=== PATIENT | male | born 1970 | race Caucasian/White ===

== ENCOUNTER 2017-07-04 10:53 | Emergency (ER) | payer MEDICARE, SELFPAY ==
[2017-07-04 10:54] VITALS: BP 164/104; PULSE 104; RESP 18; TEMP 36.2; BMI 38.2
[2017-07-04 11:17] VITALS: BP 139/99; PULSE 97; RESP 24; O2SAT 95
--- NOTE | 2017-07-04 11:18 | ED.VISSUMM ---
- ER Visit Summary Date of Service: 07/04/17 Chief Complaint: [] Right shoulder injury after fall History of Present Illness: The patient is a 46 M [] is an artificial knee the knee is stiff he was getting out of bed he inadvertently stumbled out of bed used his right arm to brace his fall he has right shoulder pain. He was able to get out of bed and go about his usual activities the shoulder pain persisted and he came in for evaluation. He had no head neck chest abdominal pain no paresthesias. He does not believe he actually struck his shoulder Physical Examination: [] He is a large gentleman in no distress is complaining shoulder pain only right. His HEENT exam head and neck are unremarkable no trauma lungs are distant heart tones are distant abdomen soft obese but nontender the back C-spine T-spine lumbar spine nontender his upper lower extremities are generally unremarkable except for the right shoulder there is no obvious instability deformity no obvious step-off to the shoulder humeral humeral glenoid area. He is able to move the shoulder but has slightly decreased forward elevation he has no elbow forearm wrist or hand pain hand function is normal Test Results: [] Emergency Department Course and Treatment: [] IM morphine and Zofran right shoulder x-ray X-rays unremarkable for any signs of fracture dislocation per radiology, explained the patient the concept of an occult injury including rotator cuff or other structures he is fitted with a sling ice elevation he has multiple allergies he has been instructed to take whatever [id number] medicine he is allowed to use and follow-up with his doctor he was given a referral to [facility] as well Treatment Plan: [] Disposition: [] Home stable Impression: [] Right shoulder injury after fall This note was generated with [employer] dictation software. It may contain incorrect words, spelling, and punctuation that were not noted in review of the chart prior to signing ED Disposition - Plan for ED Patient: Chief Complaint: Disclocation Referrals: [facility] Doctor,Out of [Primary Care Provider] -
[2017-07-04] MEDS: Ondansetron ODT 4 MG Tablet PO (11:24)
--- NOTE | 2017-07-04 11:35 | RAD_ITS ---
STUDY: X-RAY - RIGHT SHOULDER REASON FOR EXAM: Male, 46 years old. Fall from bed TECHNIQUE: 2 view(s) of the shoulder. COMPARISON: X-rays of the right shoulder and September 11, 2015. FINDINGS: Normal glenohumeral articulation. Normal acromioclavicular joint. Normal acromion. Normal humeral head and visualized proximal humerus. The soft tissue structures are unremarkable. Normal visualized pulmonary apex. RAD/Shoulder min 2 Views IMPRESSION: Normal x-ray examination of the shoulder. No significant changes since the prior study Electronically Signed: Kehinde Roldan MD, FACR at 11:56 EST , Service support ,
--- NOTE | 2017-07-04 11:55 | ED.DEP ---
ED Disposition - Plan for ED Patient: Chief Complaint: Disclocation Instructions: ED Sprain Shoulder Referrals: [facility] Doctor,Out of [Primary Care Provider] - Ramiro Clark MD [STAFF PHYSICIAN] -
--- NOTE | 2017-07-04 12:03 | DCINST.ED_ITS ---
ED Disposition - Plan for ED Patient: Chief Complaint: Disclocation Instructions: ED Sprain Shoulder Referrals: [facility] Doctor,Out of [Primary Care Provider] - Ramiro Clark MD [STAFF PHYSICIAN] -
[2017-07-04 12:28] VITALS: BP 156/96; PULSE 91; RESP 18; O2SAT 92
== END 2017-07-04 12:30 | disposition home or self-care (01) ==
LOC: ED 12:12
PROVIDERS: Emergency Provider Emergency Medicine
DX: S49.91XA Unspecified injury of right shoulder and upper arm, initial encounter (principal); W06.XXXA Fall from bed, initial encounter; Y93.89 Activity, other specified; Y92.009 Unspecified place in unspecified non-institutional (private) residence as the place of occurrence of the external cause; F32.9 Major depressive disorder, single episode, unspecified; Z79.899 Other long term (current) drug therapy
CPT/HCPCS: 73030; 96372; 99283

== ENCOUNTER 2019-06-10 12:00 | Emergency (ER) | payer MEDICARE, SELFPAY ==
[2019-06-10 12:02] VITALS: BP 139/92; PULSE 106; RESP 18; TEMP 37.1; O2SAT 97; BMI 37.5
--- NOTE | 2019-06-10 12:11 | RAD_ITS ---
STUDY: X-RAY - LEFT SHOULDER REASON FOR EXAM: Male, 48 years old. PT FELL LAST NIGHT, PAIN TECHNIQUE: 4 view(s) of the shoulder. COMPARISON: None. FINDINGS: Normal glenohumeral articulation. Normal acromioclavicular joint. There is evidence of a prior partial resection of the acromion. Normal humeral head and visualized proximal humerus. The soft tissue structures are unremarkable. Normal visualized pulmonary apex. RAD/Shoulder min 2 Views IMPRESSION: No acute abnormality is seen. Electronically Signed: Sherman Trujillo, at 12:49 EST , Service support ,
--- NOTE | 2019-06-10 12:55 | ED.DCSUM_ITS ---
- ER Visit Summary Date of Service: 06/10/19 Chief Complaint: [Injury to left shoulder] History of Present Illness: The patient is a 48 M [presents to the emergency department complaint of injury left shoulder that occurred last evening. Patient states that he slipped on his porch and put both hands out in front of him and injured his left shoulder. Patient complains of pain with movement. Patient complains of pain into his armpit with it. He denies any numbness or tingling or weakness in extremity. Patient is right-hand dominant. He denies tracking his head or loss of consciousness.] Physical Examination: [HEENT-PERRLA, EOMI. Cranial nerves II through XII grossly intact. TMs clear. Mucous membranes moist. No adenopathy. No external evidence of trauma to his head. Patient has no C-spine tenderness on palpation. Cardiovascular-regular rate and rhythm without murmur or ectopy Lungs-clear to auscultation, chest wall stable without crepitus or subcu emphysema Abdomen-normoactive bowel sounds, soft, nontender, no rebound or rigidity, no peritoneal signs. Extremities-intact ?4, normal range of motion, normal pulses, atraumatic]. Left shoulder-patient has diffuse tenderness about the glenohumeral joint. There is no sulcus sign or obvious deformity. There is no ecchymosis or bruising. Patient has decreased ability to abduct and internally rotate secondary to pain. He is neurovascular intact distally. Test Results: [Rays of the left shoulder showed no fractures or dislocations] Emergency Department Course and Treatment: [She was given a sling] Treatment Plan: [We will be given a prescription for Naprosyn and [place] for severe pain. Patient advised to follow-up with primary care physician or orthopedics on-call for follow-up within next 5 to 7 days.] Disposition: [Discharged home in stable condition.] Impression: [Left shoulder sprain-possible internal derangement] This note was generated with [facility] [employer] software. It may contain incorrect words, spelling, and punctuation that were not noted in review of the chart prior to signing ED Disposition - Plan for ED Patient: Referrals: ELIECER RÍOS [Other]
--- NOTE | 2019-06-10 12:57 | ED.DEP ---
ED Disposition - Plan for ED Patient: Instructions: Shoulder Sprain Prescriptions: Naproxen [Naprosyn] 500 mg PO BID PRN #20 tab Prescription Printed Hydrocodone Bitart/Apap 5-325 [[place] 5MG-325MG] 1 tab PO Q4H PRN PRN 2 Days #10 tab PRN Reason: Pain Prescription Printed Referrals: ELIECER RÍOS [Other] - 5-7 Days Nola Farias DO [STAFF PHYSICIAN] - 5-7 Days
[2019-06-10 13:13] VITALS: BP 140/92
== END 2019-06-10 13:14 | disposition home or self-care (01) ==
LOC: ED 12:46
PROVIDERS: Emergency Provider Emergency Medicine
DX: S43.402A Unspecified sprain of left shoulder joint, initial encounter (principal); W01.0XXA Fall on same level from slipping, tripping and stumbling without subsequent striking against object, initial encounter; Y93.9 Activity, unspecified; Y92.008 Other place in unspecified non-institutional (private) residence as the place of occurrence of the external cause; I10 Essential (primary) hypertension; F43.10 Post-traumatic stress disorder, unspecified
CPT/HCPCS: 73030; 99283